=== PATIENT | female | born 1975 | race Caucasian/White ===

== ENCOUNTER 2017-12-28 13:21 | Day surgery (SDC) | payer OTHER ==
[2017-12-28] MEDS ORDERED: MIDAZOLAM 1 MG/ML 2 ML INJ ×2 (16:59)
[2017-12-28] MEDS ORDERED: FENTAnyl 50 MCG/ML VIAL ×2 (16:59)
== END 2017-12-28 17:09 | disposition home or self-care (01) ==
LOC: GIL 13:21
DX: K92.1 Melena (principal); C19 Malignant neoplasm of rectosigmoid junction
CPT/HCPCS: 45380; 88305